=== PATIENT | female | born 2000 | race Caucasian/White ===

== ENCOUNTER → 2023-12-10 14:25 | Outpatient (REF) | payer OTHER, SELFPAY | LOC: PNTC 14:25 | PROVIDERS: ATTENDING PHYSICIAN Nurse Practitioner Family | DX: Z36.0 Encounter for antenatal screening for chromosomal anomalies (principal) | CPT/HCPCS: 76805 ==

== ENCOUNTER 2024-02-12 22:07 | Observation (INO) | payer OTHER, SELFPAY ==
[2024-02-12 22:19] VITALS: BP 135/80; BMI 27.5
== END 2024-02-12 23:30 | disposition home or self-care (01) ==
LOC: LDRP 22:07
PROVIDERS: ADMITTING PHYSICIAN Obstetrics & Gynecology
DX: O36.8130 Decreased fetal movements, third trimester, not applicable or unspecified (principal); Z3A.30 30 weeks gestation of pregnancy; R10.9 Unspecified abdominal pain; Z88.0 Allergy status to penicillin; Z88.8 Allergy status to other drugs, medicaments and biological substances
CPT/HCPCS: 59025; G0378

== ENCOUNTER → 2024-03-24 16:27 | Outpatient (REF) | payer OTHER, SELFPAY | LOC: PNTC 16:27 | PROVIDERS: ATTENDING PHYSICIAN Obstetrics & Gynecology | DX: O26.843 Uterine size-date discrepancy, third trimester (principal) | CPT/HCPCS: 76816 ==

== ENCOUNTER → 2024-04-08 17:10 | Outpatient (REF) | payer OTHER, SELFPAY | LOC: PNTC 17:10 | PROVIDERS: ATTENDING PHYSICIAN Obstetrics & Gynecology | DX: O36.8190 Decreased fetal movements, unspecified trimester, not applicable or unspecified (principal); O36.5990 Maternal care for other known or suspected poor fetal growth, unspecified trimester, not applicable or unspecified | CPT/HCPCS: 59025; 76815 ==

== ENCOUNTER 2024-04-17 19:24 | Inpatient (IN) | payer OTHER, SELFPAY ==
[2024-04-17 19:37] VITALS: BMI 31.5
[2024-04-17 20:21] LABS: % Basophils 0.4 % (0-2); % Eosinophils 1.1 % (0-6); % Immature Granulocytes 0.5 % (0-0.5); % Lymphocytes 24.5 % (20.5-51.1); % Monocytes 8.4 % (1.7-9.3); % Neutrophils 65.1 % (42.2-75.2); Absolute Eosinophils 0.1 10^3/uL (0-0.7); Absolute Lymphocytes 2.1 10^3/uL (1.2-3.4); Absolute Monocytes 0.7 10^3/uL (0.1-0.6); Absolute Neutrophils 5.6 10^3/uL (1.4-6.5); Hematocrit 33.2 % (37.0-47.0); Hemoglobin 11.2 g/dL (12.0-16.0); Mean Corp Hgb Conc. 33.7 g/dL (33.0-37.0); Mean Corpuscular Hgb 29.4 pg (27.0-31.0); Mean Corpuscular Volume 87.1 fL (81.0-99.0); Mean Platelet Volume 11.2 fL (7.4-10.4); Nucleated Red Blood Cells % 0 %; Platelet Count 245 10^3/uL (130-400); Red Blood Cell Count 3.81 10^6/uL (4.20-5.40); Red Cell Dist. Width 13.5 % (11.5-14.5); White Blood Cell Count 8.6 10^3/uL (4.8-10.8)
[2024-04-17] MEDS: CYTOTEC 25 MICROGRAM VAG (20:41)
[2024-04-17 21:02] VITALS: BP 136/89
[2024-04-17] MEDS: LR 1000 IV (21:50)
[2024-04-17] MEDS: TYLENOL 1000 MG PO (22:42)
[2024-04-17] MEDS: ANCEF 10 IV (22:43)
[2024-04-17] MEDS: BICITRA 30 ML PO (22:43)
[2024-04-17 23:05] LABS: Cord ABG Comment CORD BLOOD
[2024-04-17 23:07] LABS: B.E. Cord ABG -0.4 mMOL/L; HCO3 Cord ABG 27.2 mmol/L; O2 Saturation % Cord ABG 30.3 %; PCO2 Cord ABG 54 mmHg; PO2 Cord ABG 16 mmHg; pH Cord ABG 7.31
[2024-04-17 23:12] LABS: B.E. Cord ABG -1.3 mMOL/L; HCO3 Cord ABG 25.3 mmol/L; O2 Saturation % Cord ABG 41.4 %; PCO2 Cord ABG 48 mmHg; PO2 Cord ABG 19 mmHg; pH Cord ABG 7.33
[2024-04-17 23:45] LABS: Hepatitis C Antibody Negative (Negative)
[2024-04-18] MEDS: ZITHROMAX INFUSION 250 IV (01:05)
[2024-04-18] MEDS: TORADOL 15 MG IV ×4 (01:11→18:26)
[2024-04-18 05:25] LABS: Hematocrit 29.9 % (37.0-47.0); Hemoglobin 10.2 g/dL (12.0-16.0); Mean Corp Hgb Conc. 34.1 g/dL (33.0-37.0); Mean Corpuscular Hgb 29.7 pg (27.0-31.0); Mean Corpuscular Volume 86.9 fL (81.0-99.0); Mean Platelet Volume 11.5 fL (7.4-10.4); Platelet Count 208 10^3/uL (130-400); Red Blood Cell Count 3.44 10^6/uL (4.20-5.40); Red Cell Dist. Width 13.3 % (11.5-14.5); White Blood Cell Count 14.5 10^3/uL (4.8-10.8)
--- NOTE | 2024-04-18 08:05 | W.PN.ANS.POP ---
Anesthesia Post Operative
- Anesthesia Post Op Note
Vital Signs Stable-See Nursing Note: Yes
Airway Patent: Yes
Adequate Pain Control: Yes
Change in Mental Status: No
Current Postoperative Nausea & Vomiting: No
Anesthesia Complications: No
General Anesthetic Recall: No
Unplanned Admission: No
Post Op Hydration Adequate: Yes
- -
Pt awake and alert, resting comfortably with no anesthesia c/o at time of post op visit.
[2024-04-18] MEDS: MYLICON 80 MG PO ×2 (08:13→23:07)
[2024-04-18] MEDS: PRENATAL PLUS 1 TABLET PO (08:13)
[2024-04-18] MEDS: SENOKOT-S 1 TABLET PO (08:13)
[2024-04-18 10:53] LABS: Syphilis/T. pallidum Ab Reflex Negative (Negative)
[2024-04-18] MEDS: TYLENOL 650 MG PO (15:25)
[2024-04-19] MEDS: TYLENOL 650 MG PO ×4 (00:56→21:42)
[2024-04-19] MEDS: MYLICON 80 MG PO ×3 (09:54→21:42)
[2024-04-19] MEDS: MOTRIN 600 MG PO ×3 (09:54→21:42)
[2024-04-19] MEDS: SENOKOT-S 1 TABLET PO (09:54)
[2024-04-19] MEDS: PRENATAL PLUS 1 TABLET PO (09:56)
[2024-04-20] MEDS: TYLENOL 650 MG PO (03:46)
[2024-04-20] MEDS: MOTRIN 600 MG PO (03:46)
[2024-04-20] MEDS: PRENATAL PLUS 1 TABLET PO (08:33)
[2024-04-20] MEDS: MYLICON 80 MG PO (08:33)
--- NOTE | 2024-04-20 09:11 | W.DS.TRANS ---
DC Summary - Landscape Management Technician
-
Discharge Instructions:
Discharge Diagnosis/Procedures primary cs
Instructions:
Stand-Alone Forms: LDRP Delivery
Changes to Home Medications: No
Discharge Medications:
DC Medications w/original date entered in [facility]
prenat.vits,yvette,zla-fvbj-pvbiu 1 tab PO DAILY Supplement 02/12/24
ibuprofen 600 mg tablet 600 mg PO Q6HPRN PRN cramps #90 tabs 04/20/24
Home Medication Changes
Pending Results: Yes
Additional Pending Results:
placenta
Total time spent discharging patient (in min): 20
== END 2024-04-20 11:41 | disposition home or self-care (01) | DRG 788 ==
LOC: LDRP 19:24
PROVIDERS: ADMITTING PHYSICIAN Obstetrics & Gynecology
PROC: 10D00Z1 Extraction of Products of Conception, Low, Open Approach (ICD-10-PCS; 2024-04-17)
DX: O69.81X0 Labor and delivery complicated by cord around neck, without compression, not applicable or unspecified (principal); Z3A.39 39 weeks gestation of pregnancy; O76 Abnormality in fetal heart rate and rhythm complicating labor and delivery; Z37.0 Single live birth
CPT/HCPCS: 88307; 36415; 82803; 85025; 85027; 86780; 86803; 86850; 86900; 86901